=== PATIENT | male | born 1965 | race Caucasian/White ===

== ENCOUNTER 2022-03-26 15:01 | Emergency (ER) | payer OTHER ==
[~2022-03-26] VITALS: Ht 177.8 cm; Wt 143.0 kg
[2022-03-26 15:07] VITALS: BP 148/98
[2022-03-26] MEDS ORDERED: ibuprofen tablet 400 MG TABLET PO ONE (16:25)
[2022-03-26] MEDS ORDERED: bacitracin 15gm ointment TP ONE (16:25)
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
== END 2022-03-26 17:24 | disposition home or self-care (01) ==
LOC: ER 15:02
DX: T21.22XA Burn of second degree of abdominal wall, initial encounter (principal)
CPT/HCPCS: 16000; 99283; A6258; A6449